=== PATIENT | male | born 1970 ===

== ENCOUNTER 2021-09-13 16:05 | Emergency (ER) | payer SELFPAY ==
[~2021-09-13] VITALS: Ht 170.2 cm; Wt 68.0 kg
[2021-09-13 16:20] VITALS: BP 120/84
== END 2021-09-13 18:11 | disposition left against medical advice (07) ==
LOC: ER 16:05
DX: F10.129 Alcohol abuse with intoxication, unspecified (principal); E11.65 Type 2 diabetes mellitus with hyperglycemia; I10 Essential (primary) hypertension; F17.210 Nicotine dependence, cigarettes, uncomplicated; Y90.9 Presence of alcohol in blood, level not specified